=== PATIENT | female | born 1980 | race Caucasian/White ===

== ENCOUNTER 2017-02-13 10:36 | Day surgery (SDC) | payer BC, OTHER ==
[2017-02-12 17:13] LABS: CHLORIDE,CL 105 mmol/L (98-110); SODIUM,NA 139 mmol/L (136-146)
[~2017-02-13 10:36] MED LIST: Lactated Ringers 1,000 ML IV SCH; Lidocaine 1% 20 ML MDV ONE; Lidocaine 2% 5 ML SDV ONE; Midazolam 1 MG/ML 2 ML SDV ONE; Propofol 200 MG/20 ML SDV ONE; Sodium Chloride 0.9% 10 ML Syringe FLUSH PRN; Sodium Chloride 0.9% 2.5 ML Syringe FLUSH PRN; fentaNYL 100 MCG/2 ML SDV ONE
--- NOTE | 2017-02-13 11:15 | PCM.PREANE ---
Preanesthetic Assessment - Anesthesia/Transfusion/Family Hx Anesthesia History: Prior Anesthesia Without Reaction Family History of Anesthesia Reaction: No Transfusion History: No Prior Transfusion(s) - Review of Systems General: No Symptoms Pulmonary: No Symptoms Cardiovascular: No Symptoms Gastrointestinal: No Symptoms Neurological: No Symptoms Other: Reports: None - Physical Assessment NPO Status Date: 02/12/17 Height: 1.7 m Weight: 77.564 kg ASA Class: 2 Mental Status: Alert & Oriented x3 Airway Class: Mallampati = 1 Dentition: Reports: Normal Dentition ROM/Head Extension: Full Lungs: Clear to Auscultation, Normal Respiratory Effort Cardiovascular: Regular Rate, Regular Rhythm - Lab Values: Laboratory Last Values WBC 11.87 K/uL (4.0-11.0) H 02/12/17 16:29 RBC 4.72 M/uL (4.30-5.90) 02/12/17 16:29 Hgb 15.3 g/dL (12.0-16.0) 02/12/17 16:29 Hct 44.0 % (36.0-46.0) 02/12/17 16:29 MCV 93.2 fL (80.0-98.0) 02/12/17 16:29 MCH 32.4 pg (27.0-32.0) H 02/12/17 16:29 MCHC 34.8 g/dL (31.0-37.0) 02/12/17 16:29 RDW Std Deviation 45.5 fl (28.0-62.0) 02/12/17 16:29 RDW Coeff of Scarlett 13 % (11.0-15.0) 02/12/17 16:29 Plt Count 287 K/uL (150-400) 02/12/17 16:29 MPV 10.20 fL (7.40-12.00) 02/12/17 16:29 Nucleated RBC % 0.0 /100WBC 02/12/17 16:29 Nucleated RBCs # 0 K/uL 02/12/17 16:29 Sodium 139 mmol/L (136-146) 02/12/17 16:29 Potassium 4.0 mmol/L (3.5-5.1) 02/12/17 16:29 Chloride 105 mmol/L (98-110) 02/12/17 16:29 Carbon Dioxide 24 mmol/L (21-31) 02/12/17 16:29 BUN 12 mg/dL (6.0-23.0) 02/12/17 16:29 Creatinine 0.8 mg/dL (0.6-1.5) 02/12/17 16:29 Est Cr Clr Drug Dosing 92.72 mL/min 02/12/17 16:29 Estimated GFR (MDRD) > 60.0 ml/min 02/12/17 16:29 Glucose 81 mg/dL (60-110) 02/12/17 16:29 Calcium 9.3 mg/dL (8.8-10.8) 02/12/17 16:29 HCG, Qual NEGATIVE (NEG) 02/12/17 16:29 Blood Type A POSITIVE 02/12/17 16:29 Antibody Screen NEGATIVE 02/12/17 16:29 - Allergies Allergies/Adverse Reactions: Allergies Allergy/AdvReac Type Severity Reaction Status Date / Time No Known Allergies Allergy Verified 02/10/17 15:20 - Anesthesia Plan Pre-Op Medication Ordered: None - Acknowledgements Anesthesia Type Planned: General Anesthesia Pt an Appropriate Candidate for the Planned Anesthesia: Yes Alternatives and Risks of Anesthesia Discussed w Pt/Guardian: Yes Pt/Guardian Understands and Agrees with Anesthesia Plan: Yes PreAnesthesia Questionnaire Other HEENT History: has upper denture [employer] History: Reports: Musculoskeletal History: Reports: Neck Pain, Chronic - Past Surgical History Head Surgeries/Procedures: Reports: None Female Surgical History: Reports: Section - SUBSTANCE USE Smoking Status *Q: Current Every Day Smoker Tobacco Use Within Last Twelve Months: Cigarettes Recreational Drug Use History: No - HOME MEDS Home Medications: Home Meds Diclofenac Sodium 2 gm TOP DAILY PRN 02/10/17 [History] Ketamine HCl [Ketamine Hydrochloride] 1 dose TOP ASDIRECTED PRN 02/10/17 [ History] Lidocaine/Prilocaine [Lidocaine-Prilocaine Cream] 1 dose TOP TID PRN 02/10/17 [ History] - CURRENT (IN HOUSE) MEDS Current Meds: Current Medications Lactated Ringer's (Ringers, Lactated) 1,000 mls @ 125 mls/hr IV ASDIRECTED LUDA Sodium Chloride (Saline Flush) 10 ml FLUSH ASDIRECTED PRN PRN Reason: Keep Vein Open Sodium Chloride (Saline Flush) 2.5 ml FLUSH ASDIRECTED PRN PRN Reason: Keep Vein Open Discontinued Medications Fentanyl (Sublimaze) Confirm Administered Dose 100 mcg .ROUTE .STK-MED ONE Stop: 02/13/17 10:37 Lidocaine (Xylocaine-Mpf 2%) Confirm Administered Dose 10 ml .ROUTE .STK-MED ONE Stop: 02/13/17 10:37 Lidocaine HCl (Xylocaine 1%) Confirm Administered Dose 20 ml .ROUTE .STK-MED ONE Stop: 02/13/17 08:24 Midazolam HCl (Versed 1 Mg/Ml) Confirm Administered Dose 2 mg .ROUTE .STK-MED ONE Stop: 02/13/17 10:37 Propofol (Diprivan 20 Ml) Confirm Administered Dose 400 mg .ROUTE .STK-MED ONE Stop: 02/13/17 10:37
[2017-02-13] MEDS ORDERED: Lidocaine 1% with EPINEPHrine 1:100,000 20 ML MDV ONE (11:22)
[2017-02-13] MEDS ORDERED: Morphine 4 MG/ML Syringe IVPUSH PRN (12:05)
[2017-02-13] MEDS ORDERED: Ketorolac 30 MG/ML SDV IVPUSH PRN (12:05)
[2017-02-13] MEDS ORDERED: Ketorolac 30 MG/ML SDV IVPUSH ONE (12:05)
[2017-02-13] MEDS ORDERED: Promethazine 25 MG/ML SDV IM PRN (12:05)
[2017-02-13] MEDS ORDERED: Morphine 2 MG/ML Syringe IVPUSH PRN (12:05)
[2017-02-13] MEDS ORDERED: Acetaminophen/oxyCODONE 325-5 MG Tab PO PRN ×2 (12:05)
[2017-02-13] MEDS ORDERED: Ondansetron 4 MG/2 ML SDV IVPUSH PRN (12:05)
--- NOTE | 2017-02-13 12:08 | PCM.OPNOTE ---
- General Post-Op/Procedure Note Date of Surgery/Procedure: 02/13/17 Operative Procedure(s): Leep Pre Op Diagnosis: ASCU Post-Op Diagnosis: Same Anesthesia Technique: General LMA Primary Surgeon: Glenn Garcia EBL in mLs: 25 Complications: None Condition: Good
--- NOTE | 2017-02-13 12:09 | PCM.DCSUM1 ---
Discharge Summary - Discharge Data Discharge Date: 02/13/17 Discharge Disposition: Home, Self-Care 01 Condition: Good - Patient Summary/Data Operative Procedure(s) Performed: Leep - Discharge Plan Home Medications: Home Meds Diclofenac Sodium 2 gm TOP DAILY PRN 02/10/17 [History] Ketamine HCl [Ketamine Hydrochloride] 1 dose TOP ASDIRECTED PRN 02/10/17 [ History] Lidocaine/Prilocaine [Lidocaine-Prilocaine Cream] 1 dose TOP TID PRN 02/10/17 [ History] - General Info Date of Service: 02/13/17 Functional Status: Reports: Pain Controlled - Review of Systems General: Reports: No Symptoms HEENT: Reports: No Symptoms Pulmonary: Reports: No Symptoms Cardiovascular: Reports: No Symptoms Gastrointestinal: Reports: No Symptoms Genitourinary: Reports: No Symptoms Musculoskeletal: Reports: No Symptoms Skin: Reports: No Symptoms Neurological: Reports: No Symptoms Psychiatric: Reports: No Symptoms - Patient Data Vitals - Most Recent: Last Vital Signs Temp 36.4 C 02/13/17 11:15 Pulse 93 02/13/17 11:15 Resp 18 02/13/17 11:15 BP 124/76 02/13/17 11:15 Pulse Ox 98 02/13/17 11:15 Weight - Most Recent: 77.564 kg Lab Results - Last 24 hrs: Laboratory Results - last 24 hr 02/12/17 02/12/17 02/12/17 Range/Units 16:29 16:29 16:29 WBC 11.87 H (4.0-11.0) K/uL RBC 4.72 (4.30-5.90) M/uL Hgb 15.3 (12.0-16.0) g/dL Hct 44.0 (36.0-46.0) % MCV 93.2 (80.0-98.0) fL MCH 32.4 H (27.0-32.0) pg MCHC 34.8 (31.0-37.0) g/dL RDW Std Deviation 45.5 (28.0-62.0) fl RDW Coeff of Scarlett 13 (11.0-15.0) % Plt Count 287 (150-400) K/uL MPV 10.20 (7.40-12.00) fL Nucleated RBC % 0.0 /100WBC Nucleated RBCs # 0 K/uL Sodium 139 (136-146) mmol/L Potassium 4.0 (3.5-5.1) mmol/L Chloride 105 (98-110) mmol/L Carbon Dioxide 24 (21-31) mmol/L BUN 12 (6.0-23.0) mg/dL Creatinine 0.8 (0.6-1.5) mg/dL Est Cr Clr Drug Dosing 92.72 mL/min Estimated GFR (MDRD) > 60.0 ml/min Glucose 81 (60-110) mg/dL Calcium 9.3 (8.8-10.8) mg/dL HCG, Qual NEGATIVE (NEG) Blood Type Antibody Screen 02/12/17 Range/Units 16:29 WBC (4.0-11.0) K/uL RBC (4.30-5.90) M/uL Hgb (12.0-16.0) g/dL Hct (36.0-46.0) % MCV (80.0-98.0) fL MCH (27.0-32.0) pg MCHC (31.0-37.0) g/dL RDW Std Deviation (28.0-62.0) fl RDW Coeff of Scarlett (11.0-15.0) % Plt Count (150-400) K/uL MPV (7.40-12.00) fL Nucleated RBC % /100WBC Nucleated RBCs # K/uL Sodium (136-146) mmol/L Potassium (3.5-5.1) mmol/L Chloride (98-110) mmol/L Carbon Dioxide (21-31) mmol/L BUN (6.0-23.0) mg/dL Creatinine (0.6-1.5) mg/dL Est Cr Clr Drug Dosing mL/min Estimated GFR (MDRD) ml/min Glucose (60-110) mg/dL Calcium (8.8-10.8) mg/dL HCG, Qual (NEG) Blood Type A POSITIVE Antibody Screen NEGATIVE Med Orders - Current: Current Medications Lactated Ringer's (Ringers, Lactated) 1,000 mls @ 125 mls/hr IV ASDIRECTED LUDA Last Admin: 02/13/17 11:24 Dose: 125 mls/hr Ketorolac Tromethamine (Toradol) 30 mg IVPUSH ONETIME ONE Stop: 02/13/17 12:06 Ketorolac Tromethamine (Toradol) 30 mg IVPUSH Q6H PRN PRN Reason: Pain (severe 7-10) Stop: 02/18/17 12:05 Morphine Sulfate (Morphine) 2 mg IVPUSH Q2H PRN PRN Reason: Pain (severe 7-10) Morphine Sulfate (Morphine) 4 mg IVPUSH Q2H PRN PRN Reason: Pain (severe 7-10) Ondansetron HCl (Zofran) 4 mg IVPUSH Q6H PRN PRN Reason: Nausea/Vomiting Oxycodone/Acetaminophen (Percocet 325-5 Mg) 1 tab PO Q4H PRN PRN Reason: Pain (moderate 4-6) Oxycodone/Acetaminophen (Percocet 325-5 Mg) 2 tab PO Q4H PRN PRN Reason: Pain (moderate 4-6) Promethazine HCl (Phenergan) 25 mg IM Q6H PRN PRN Reason: Nausea/Vomiting Sodium Chloride (Saline Flush) 10 ml FLUSH ASDIRECTED PRN PRN Reason: Keep Vein Open Sodium Chloride (Saline Flush) 2.5 ml FLUSH ASDIRECTED PRN PRN Reason: Keep Vein Open Discontinued Medications Fentanyl (Sublimaze) Confirm Administered Dose 100 mcg .ROUTE .STK-MED ONE Stop: 02/13/17 10:37 Lidocaine (Xylocaine-Mpf 2%) Confirm Administered Dose 10 ml .ROUTE .STK-MED ONE Stop: 02/13/17 10:37 Lidocaine HCl (Xylocaine 1%) Confirm Administered Dose 20 ml .ROUTE .STK-MED ONE Stop: 02/13/17 08:24 Lidocaine/Epinephrine (Xylocaine 1% With Epinephrine 1:100,000) Confirm Administered Dose 20 ml .ROUTE .STK-MED ONE Stop: 02/13/17 11:23 Midazolam HCl (Versed 1 Mg/Ml) Confirm Administered Dose 2 mg .ROUTE .STK-MED ONE Stop: 02/13/17 10:37 Propofol (Diprivan 20 Ml) Confirm Administered Dose 400 mg .ROUTE .STK-MED ONE Stop: 02/13/17 10:37 - Exam General: Reports: Alert, Oriented HEENT: Reports: Pupils Equal, Pupils Reactive, EOMI, Mucous Membr. Moist/[place] Neck: Reports: Supple Lungs: Reports: Clear to Auscultation, Normal Respiratory Effort Cardiovascular: Reports: Regular Rate, Regular Rhythm GI/Abdominal Exam: Normal Bowel Sounds, Soft, Non-Tender, No Organomegaly, No Distention, No Abnormal Bruit, No Mass, Pelvis Stable (Female) Exam: Normal External Exam, Normal Speculum Exam, Normal Bimanual Exam Rectal (Female) Exam: Normal Exam, Normal Rectal Tone Back Exam: Reports: Normal Inspection, Full Range of Motion Extremities: Normal Inspection, Normal Range of Motion, Non-Tender, No Pedal Edema, Normal Capillary Refill Skin: Reports: Warm, Dry, Intact Wound/Incisions: Reports: Healing Well Neurological: Reports: No New Focal Deficit Psy/Mental Status: Reports: Alert, Normal Affect, Normal Mood *Q Meaningful Use (DIS) - VTE *Q VTE Criteria *Q: - Stroke *Q Stroke Criteria *Q: - AMI *Q AMI Criteria *Q:
[2017-02-13] MEDS ORDERED: fentaNYL 100 MCG/2 ML SDV IVPUSH PRN (12:16)
--- NOTE | 2017-02-13 12:41 | PCM.POSTAN ---
POST ANESTHESIA ASSESSMENT - MENTAL STATUS Mental Status: Alert - RESPIRATORY Respiratory Status: Respiratory Rate WNL - CARDIOVASCULAR CV Status: Pulse Rate WNL - GASTROINTESTINAL GI Status: No Symptoms - PAIN Pain Score: 0 - POST OP HYDRATION Hydration Status: Adequate & Stable
--- NOTE | 2017-02-13 12:50 | OR ---
SURGEON: Glenn Garcia MD DATE OF PROCEDURE: 02/13/2017 PREOPERATIVE DIAGNOSIS: Atypical squamous cells of undetermined significance with positive endocervical scrape. POSTOPERATIVE DIAGNOSIS: Atypical squamous cells of undetermined significance with positive endocervical scrape. OPERATION PERFORMED: Cone biopsy with LEEP. EMBOSSING TOOLSETTER: None. ANESTHESIA: LMA, Milton Prieto. ESTIMATED BLOOD LOSS: Less than 25 mL. COMPLICATIONS: None. FINDING: ASCUS. INDICATION: Odd refer to the admit note. PROCEDURE IN DETAIL: The patient was brought to the OR, properly identified. After adequate level of anesthesia, the patient was placed in lithotomy position, prepped and draped in sterile fashion as usual. Time-out was taken at this time, and then weighted speculum placed in the vagina. The cervix was grabbed at 3 and 9 o'clock by Allis clamps and infiltrated with copious amount of 1% Xylocaine with epi. Once that done then, then loop excision of the cone biopsy was performed and removed, and sent for histopathology. The base of the cone was cauterized with electrocautery. There was no bleeding after we finished the procedure and at this time, the procedure ended. Then instrument retrieved from the vagina. The patient tolerated the procedure well, went to recovery room in stable general condition. HAIM / RUSLAN /[id number]
--- NOTE | 2017-02-13 13:11 | PCM48HPAN ---
Post Anesthesia Note - EVALUATION WITHIN 48HRS OF ANESTHETIC Vital Signs in Normal Range: Yes Patient Participated in Evaluation: Yes Respiratory Function Stable: Yes Airway Patent: Yes Cardiovascular Function Stable: Yes Hydration Status Stable: Yes Pain Control Satisfactory: Yes Nausea and Vomiting Control Satisfactory: Yes Mental Status Recovered: Yes
[2017-02-13 14:10] VITALS: BP 114/66
== END 2017-02-13 13:30 | disposition home or self-care (01) ==
LOC: MW.SDS 10:36
PROVIDERS: ATTEND Obstetrics & Gynecology
DX: N87.0 Mild cervical dysplasia (principal); Z79.899 Other long term (current) drug therapy; Z98.890 Other specified postprocedural states; F17.210 Nicotine dependence, cigarettes, uncomplicated
CPT/HCPCS: 36415; 57522; 80048; 84703; 85027; 86850; 86900; 86901; J2250; J3010; J7120; 00940; 88307; J2704

== ENCOUNTER 2017-07-16 21:00 | Emergency (ER) | payer OTHER ==
[2017-07-16] MEDS ORDERED: Ketorolac 60 MG/2 ML SDV IM ONE (21:38)
--- NOTE | 2017-07-16 21:43 | EDM.PDOC ---
ED HPI GENERAL MEDICAL PROBLEM - General Chief Complaint: Neck Problem Stated Complaint: NECK PAIN Time Seen by Provider: 07/16/17 21:29 - History of Present Illness INITIAL COMMENTS - FREE TEXT/NARRATIVE: HISTORY AND PHYSICAL: History of present illness: The patient is a 37-year-old female presents with complaints of right-sided posterior neck pain that started about 10 days ago. The patient says she has had pain and muscle issues with her neck in the past and has done physical therapy and says that this initially started as a small knot she tried to work out but it seemed to have progressively worsened. She states she has been using heat but tried ice today and that made it worse. Movement of the neck makes it feel worse and she prefers to hold a very stiff which he knows is not good. She has only taken [id number] meds and has not seen her provider at [facility], Dr. Winston, for this problem. She has no weakness in her upper extremities and the pain does not shoot down her arm and there is no numbness or tingling to her extremities. She has no systemic complaints. She has had no trauma to her head or neck. Review of systems: As per history of present illness and below otherwise all systems reviewed and negative. Past medical history: As per history of present illness and as reviewed below otherwise noncontributory. Surgical history: As per history of present illness and as reviewed below otherwise noncontributory. Social history: No reported history of drug or alcohol abuse. Family history: As per history of present illness and as reviewed below otherwise noncontributory. Physical exam: Renal: Well-developed well-nourished female who does not move her head and neck very easily and hold very stiffly on my evaluation. Vital signs are noted by me HEENT: Atraumatic, normocephalic, pupils reactive, negative for conjunctival pallor or scleral icterus, mucous membranes moist, throat clear, neck supple, nontender, trachea midline. TMs are normal bilaterally is no cervical adenopathy. There are no midline step-offs tenderness defects of the cervical spine but there is spasm and tenderness of the strap muscles on the right side extending up into the occipital region. There is no discrete occipital nerve tenderness on palpation. There is no bony deformities or swelling appreciated. Lungs: Clear to auscultation, breath sounds equal bilaterally, chest nontender. Heart: S1S2, regularrhythm and slightly tachycardic rate on my evaluation no overt murmurs Abdomen: Soft, nondistended, nontender. NABS Pelvis: Deferred Genitourinary: Deferred. Rectal: Deferred. Extremities: Atraumatic, negative for cords or calf pain. Neurovascular unremarkable. Neuro: Awake, alert, oriented. Cranial nerves II through XII unremarkable. Cerebellum unremarkable. Motor and sensory unremarkable throughout. Exam nonfocal. There is no evidence of any upper extremity weakness or neurosensory changes on my evaluation Diagnostics: [] Therapeutics: Toradol Norflex Impression: Acute cervical muscle spasm strain pain Definitive disposition and diagnosis as appropriate pending reevaluation and review of above. Neck Pain Score (Numeric/FACES): 6 - Related Data Allergies Allergy/AdvReac Type Severity Reaction Status Date / Time No Known Allergies Allergy Verified 07/16/17 21:28 Home Meds: Home Meds FLUoxetine [PROzac] 10 mg PO BEDTIME 07/16/17 [History] Past Medical History Other HEENT History: has upper denture [employer] History: Reports: Musculoskeletal History: Reports: Neck Pain, Chronic - Past Surgical History Head Surgeries/Procedures: Reports: None Female Surgical History: Reports: Section Neurological Surgical History: Reports: C-Spine Other Neurological Surgeries/Procedures: C4-C5 fusion Social & Family History - Tobacco Use Smoking Status *Q: Current Every Day Smoker Years of Tobacco use: 20 Packs/Tins Daily: 0.5 - Recreational Drug Use Recreational Drug Use: No Drug Use in Last 12 Months: No ED ROS GENERAL - Review of Systems Review Of Systems: ROS reveals no pertinent complaints other than HPI. ED EXAM, GENERAL - Physical Exam Exam: See Below (see Dictation) Course - Vital Signs Last Recorded V/S: Last Vital Signs Temp 36.6 C 07/16/17 21:30 Pulse 134 H 07/16/17 21:30 Resp 18 07/16/17 21:30 BP 137/88 07/16/17 21:30 Pulse Ox 98 07/16/17 21:30 - Orders/Labs/Meds Orders: Active Orders 24 hr Category Date Time Status Ketorolac [Toradol] Med 07/16/17 21:38 Once 60 mg IM ONETIME ONE Orphenadrine [Norflex] Med 07/16/17 21:38 Once 60 mg IM ONETIME ONE Departure - Departure Time of Disposition: 21:42 Disposition: Home, Self-Care 01 Condition: Good Clinical Impression: Neck pain on right side - Discharge Information Referrals: Douglas Winston MD [Primary Care Provider] - Additional Instructions: The following information is given to patients seen in the emergency department who are being discharged to home. This information is to outline your options for follow-up care. We provide all patients seen in our emergency department with a follow-up referral. The need for follow-up, as well as the timing and circumstances, are variable depending upon the specifics of your emergency department visit. If you don't have a primary care physician on staff, we will provide you with a referral. We always advise you to contact your personal physician following an emergency department visit to inform them of the circumstance of the visit and for follow-up with them and/or the need for any referrals to a consulting specialist. The emergency department will also refer you to a specialist when appropriate. This referral assures that you have the opportunity for followup care with a specialist. All of these measure are taken in an effort to provide you with optimal care, which includes your followup. Under all circumstances we always encourage you to contact your private physician who remains a resource for coordinating your care. When calling for followup care, please make the office aware that this follow-up is from your recent emergency room visit. If for any reason you are refused follow-up, please contact the [facility] emergency department at and ask to speak to the emergency department charge nurse. [address] [place] [address] Please use heat to area and take medications as prescribed. Please only use the muscle relaxer and tramadol when you're at home. Please try to stretch and open up the area as we discussed and please contact her provider at [facility] to be seen 1-2 days for reevaluation and further care. Return to ER as needed and as discussed - My Orders Last 24 Hours: My Active Orders 07/16/17 21:38 Ketorolac [Toradol] 60 mg IM ONETIME ONE Orphenadrine [Norflex] 60 mg IM ONETIME ONE - Assessment/Plan Last 24 Hours: My Active Orders 07/16/17 21:38 Ketorolac [Toradol] 60 mg IM ONETIME ONE Orphenadrine [Norflex] 60 mg IM ONETIME ONE
[2017-07-16 22:17] VITALS: BP 127/81
== END 2017-07-16 22:21 | disposition home or self-care (01) ==
LOC: MW.ED 21:00
DX: S16.1XXA Strain of muscle, fascia and tendon at neck level, initial encounter (principal); F17.210 Nicotine dependence, cigarettes, uncomplicated; X58.XXXA Exposure to other specified factors, initial encounter
CPT/HCPCS: 96372; 99283; J1885; J2360; 99282